=== PATIENT | female | born 1975 | race Caucasian/White ===

== ENCOUNTER 2023-12-13 13:58 | Emergency (ER) | payer OTHER, BC ==
[2023-12-13 14:12] VITALS: BP 104/63; PULSE 66; RESP 16; TEMP 98.4; BMI 20.5
[2023-12-13] MEDS ORDERED: DIPHTH,PERTUSS(ACELL),TET 0.5 ML DISP.SYRIN IM ONE (14:27)
[2023-12-13] MEDS: DIPHTH,PERTUSS(ACELL),TET 0.5 ML DISP.SYRIN IM ONE (14:34)
== END 2023-12-13 15:56 | disposition home or self-care (01) ==
LOC: FER 13:58
PROC: 3E0234Z Introduction of Serum, Toxoid and Vaccine into Muscle, Percutaneous Approach (ICD-10-PCS; principal; 2023-12-13)
DX: S61.211A Laceration without foreign body of left index finger without damage to nail, initial encounter (principal); W20.8XXA Other cause of strike by thrown, projected or falling object, initial encounter; Z23 Encounter for immunization
CPT/HCPCS: 73130-TC-LT-FY; 90715; 99283-25